=== PATIENT | female | born 1990 | race African-American/Black ===

== ENCOUNTER 2020-11-04 18:47 | Emergency (ER) | payer OTHER ==
[~2020-11-04] VITALS: Ht 162.6 cm; Wt 95.3 kg
--- NOTE | 2020-11-04 18:50 | NUR ---
Patient transferred to bed 10 via wheelchair by tech. RN evaluating the patient at bedside.
[2020-11-04 19:07] VITALS: BP 115/69
--- NOTE | 2020-11-04 19:11 | NUR ---
30 YEAR OLD FEMALE COMPLAINS OF MECHANICAL FALL X PRIOR TO ARRIVAL. PT STATES THAT SHE WAS TALKING TO NEIGHBOR AND THEN PASSED OUT. PT STATES SHE DOES NOT REMEMBER EVENT, DOES NOT KNOW IF HIT HEAD BUT STATES SHE HAS HEADACHE. NO VISIBLE BLEEDING NOTED. PT DENIES DRUG USE. PT AOX4, BREATHING EVEN AND UNLABORED, SKIN WARM AND DRY. BED IN LOWEST POSITION, LOCKED, BED RAIL UPX1. PMH - DENIES ALLERGIES - NKA
--- NOTE | 2020-11-04 19:15 | NUR ---
PATIENT NOTED WITH 20G IV PALCED IN L AC.
--- NOTE | 2020-11-04 19:15 | NUR ---
RECIVED REPORT FROM RAUL CHRISTIAN. CONTINUATION OF CARE. PATIENT A&O X4. RESPIRATIONS ARE EVEN AND UNLABORED. SKIN IS WARM AND DRY TO TOUCH. PATIENT DENIES BLURRED VISION OR DIZZYNESS AT THIE TIME. PATIENT STATES 6/10 CARTAGENA.
--- NOTE | 2020-11-04 19:30 | NUR ---
Carin medellin in ED - 11/04/20 at 1935 by [facility] EKG BEING PERFORMED AT BEDSIDE.
--- NOTE | 2020-11-04 19:30 | NUR ---
ekg performed at bedside. ekg reads sinus rhythm @ 70
--- NOTE | 2020-11-04 19:30 | NUR ---
EKG BEING PERFORMED AT BEDSIDE.
[2020-11-04 19:40] LABS: BASOPHILS # (AUTO) 0.1 K/uL (0.00-0.22); BASOPHILS % (AUTO) 0.9 % (0.0-2.0); EOSINOPHILS # (AUTO) 0.3 K/uL (0-0.4); HEMATOCRIT 39.5 % (36-48); LYMPHOCYTES # (AUTO) 3.5 K/uL (2.5-16.5); LYMPHOCYTES % (AUTO) 49.8 % (20.5-51.1); MEAN CORPUSCULAR HEMOGLOBIN 28 pg (27-31); MEAN CORPUSCULAR HGB CONC 33 g/dL (33-37); MEAN CORPUSCULAR VOLUME 86.5 fL (80-94); MONOCYTES # (AUTO) 0.4 K/uL (0.8-1.0); MONOCYTES % (AUTO) 6.1 % (1.7-9.3); NEUTROPHILS # (AUTO) 2.8 K/uL (1.8-7.7); NEUTROPHILS % (AUTO) 39.2 % (42.2-75.2); PLATELET COUNT (AUTO) 267 K/uL (140-450); RED BLOOD CELL COUNT(AUTO) 4.57 MIL/uL (4.20-5.40); RED CELL DISTRIBUTION WIDTH 14.7 % (11.6-13.7); WHITE BLOOD COUNT (AUTO) 7.1 K/uL (4.8-10.8)
[2020-11-04 19:56] LABS: ANION GAP 12.8 (8-16); ASPARTATE AMINOTRANSFERASE 26 U/L (15-37); CHLORIDE 103 mmol/L (98-107); CREATININE 1.1 mg/dL (0.6-1.3); GFR ARICAN-AMERICAN 75 mL/min (>90); GLUCOSE 105 mg/dL (74-106); POTASSIUM 3.8 mmol/L (3.5-5.1); SODIUM SERUM 139 mmol/L (136-145); TOTAL BILIRUBIN 0.5 mg/dL (0.0-1.0); UREA NITROGEN, BLOOD 14 mg/dL (7-18)
[2020-11-04 19:59] LABS: ACETAMINOPHEN < 0.5 ug/ml (10-30); SALICYLATE < 2.8 mg/dL (2.8-20.0)
--- NOTE | 2020-11-04 20:15 | NUR ---
WITH PERMISSION FROM PATIENT, GAVE AN UPDATE ON PATIENT'S CONDITION TO . [phone].
--- NOTE | 2020-11-04 20:22 | NUR ---
Carin medellin in [facility] - 11/04/20 at [address] Day examining patient.
--- NOTE | 2020-11-04 20:22 | NUR ---
ERMD AT BEDSIDE EVALUATING PATIENT.
[2020-11-04 20:41] LABS: BARBITURATE, URINE NEGATIVE ng/ml (NEG <=200); BENZODIAZEPINE, URINE NEGATIVE ng/mL (NEG <=200); CANNABINOID, URINE NEGATIVE ng/mL (NEG <=50); COCAINE, URINE NEGATIVE ng/mL (NEG <=300); OPIATE, URINE NEGATIVE ng/mL (NEG <=2000); PHENCYCLIDINE SCREEN,URINE NEGATIVE ng/mL (NEG <=25)
--- NOTE | 2020-11-04 21:43 | NUR ---
IV removed, catheter intact and site benign. Applied folded 4x4 gauze and tape to stop bleeding.
[2020-11-04 21:45] VITALS: BP 122/74
--- NOTE | 2020-11-04 21:45 | NUR ---
Patient discharged with v/s stable. Written and verbal after care instructions given and explained. Patient verbalized understanding. Ambulatory with steady gait. All questions addressed prior to discharge. Advised to follow up with PMD.
== END 2020-11-04 21:45 | disposition home or self-care (01) ==
LOC: MED 18:47
DX: R55 Syncope and collapse (principal); R51.9 Headache, unspecified; Z98.890 Other specified postprocedural states
CPT/HCPCS: 36415; 70450; 80053; 80305; 81025; 85025; 93005; 99285; G0480; G0482